=== PATIENT | female | born 1955 | race Two or more races ===

== ENCOUNTER 2024-07-24 17:58 | Emergency (ER) | payer OTHER ==
[~2024-07-24] VITALS: Ht 162.6 cm; Wt 63.2 kg
[2024-07-24] MEDS ORDERED: OMEG100014 PO (18:02)
[2024-07-24] MEDS ORDERED: CHOL400T56 PO (18:02)
[2024-07-24 18:40] LABS: GLUCOMETER DEV NAME(LOC) ER.7; GLUCOSE,POINT OF CARE 127 MG/DL (70-110)
[2024-07-24 19:09] LABS: BASOPHILS % (AUTO) 0.5 % (0.0-2.0); EOSINOPHILS % (AUTO) 0.8 % (1.0-6.0); HEMATOCRIT 36.9 % (36-46); HEMOGLOBIN 12.3 g/dL (12.0-16.0); LYMPHOCYTES # (AUTO) 0.8 K/uL (1.0-4.8); LYMPHOCYTES % (AUTO) 8.3 % (22.0-44.0); MEAN CORPUSCULAR HGB CONC 33.2 G/dL (31.0-37.0); MEAN CORPUSCULAR VOLUME 87 fL (80-100); MONOCYTES # (AUTO) 0.4 K/uL (0.1-1.0); MONOCYTES % (AUTO) 4.5 % (2.0-9.0); NEUTROPHILS # (AUTO) 8.4 K/uL (1.8-7.7); PLATELET COUNT (AUTO) 236 K/uL (150-450); RED BLOOD CELL COUNT(AUTO) 4.24 MIL/uL (4.00-5.20); RED CELL DISTRIBUTION WIDTH 12.9 % (11.5-14.5); WHITE BLOOD COUNT (AUTO) 9.8 K/uL (4.5-11.0)
[2024-07-24 19:10] LABS: NEUTROPHILS % (AUTO) 85.9 % (40.0-70.0)
[2024-07-24] MEDS: KETOROLAC TROMETHAMINE 30 MG/ML VIAL IVP ONE (19:21)
[2024-07-24] MEDS: ONDANSETRON HCL 4 MG/2 ML VIAL IVP ONE (19:21)
[2024-07-24 19:27] LABS: RBC MORPHOLOGY COMMENT NORMAL RBC MORPH
[2024-07-24 19:28] LABS: TROPONIN I-HIGH SENSITIVITY 4 ng/L (<51)
[2024-07-24 19:33] LABS: B-TYPE NATRIURETIC PEPTIDE 38 pg/mL (0-100)
[2024-07-24 19:33] LABS: INFLUENZA A-RTPCR,COMBO NEGATIVE (NEGATIVE); INFLUENZA B-RTPCR,COMBO NEGATIVE (NEGATIVE); RESPIRATORY SYNCYTIAL VRS-PCR NEGATIVE (NEGATIVE); SARS COVID19 RTPCR, COMBO NEGATIVE (NEGATIVE)
[2024-07-24 19:40] LABS: ANION GAP 7 mmol/L (8-16); CALCIUM, TOTAL 8.8 mg/dL (8.8-10.5); CARBON DIOXIDE 32 mmol/L (22-29); CHLORIDE 103 mmol/L (98-107); CREATININE 0.66 mg/dL (0.60-1.30); GLOMERULAR FILTR. RATE CALC > 60 mL/min (>60); GLUCOSE,RANDOM 121 mg/dL (70-110); SODIUM SERUM 142 mmol/L (136-145); UREA NITROGEN, BLOOD 17 mg/dL (7-18)
[2024-07-24 20:05] LABS: CREATINE KINASE, TOTAL ONLY 127 U/L (26-192); LIPASE 41 U/L (16-77)
[2024-07-24 20:32] LABS: APPEARANCE,URINE HAZY (CLEAR); BILIRUBIN,URINE NEGATIVE (NEGATIVE); COLOR,URINE LIGHT YELLOW (YELLOW); GLUCOSE, URINE (UA) NEGATIVE (NEGATIVE); KETONES,URINE NEGATIVE (NEGATIVE); LEUKOCYTE ESTERASE ,URINE SMALL (NEGATIVE); NITRATE,URINE NEGATIVE (NEGATIVE); OCCULT BLOOD,URINE NEGATIVE (NEGATIVE); PH,URINE 7.5 (5.0-8.0); PROTEIN,URINE NEGATIVE (NEGATIVE); SPECIFIC GRAVITIY, URINE 1.014 (1.003-1.030); UROBILINOGEN,URINE <=1.0 mg/dL (<=1.0)
[2024-07-24 20:35] LABS: BACTERIA,URINE Few /HPF (None Seen); RBC,URINE 0-2 /HPF (0-2); SQUAMOUS EPITHELIAL CELL,UR Few /LPF (None Seen)
[2024-07-24] MEDS ORDERED: AZIT250T9 PO (20:35)
[2024-07-24 20:36] LABS: AMORPHOUS SEDIMENT,UR Many /LPF (None Seen)
[2024-07-24 21:07] VITALS: BP 129/69; PULSE 75; RESP 18; TEMP 98.3; O2SAT 99
== END 2024-07-24 21:47 | disposition home or self-care (01) ==
LOC: EMS 17:58
DX: J98.4 Other disorders of lung (principal); R11.2 Nausea with vomiting, unspecified; E11.9 Type 2 diabetes mellitus without complications; E78.00 Pure hypercholesterolemia, unspecified; Z85.3 Personal history of malignant neoplasm of breast; Z20.822 Contact with and (suspected) exposure to COVID-19
CPT/HCPCS: 99285; 96374; 0241U; 71045; 96375; 80048; 81001; 82550; 82962; 83690; 83880; 84484; 85025; 87086; 36415; 93005; J1885; J2405